=== PATIENT | female | born 1970 | race Two or more races ===

== ENCOUNTER 2022-11-09 08:03 | Day surgery (SDC) | payer BC ==
[~2022-11-09 08:03] MED LIST: Lactated Ringers 1,000 ML IV SCH; Sodium Chloride 0.9% 10 ML Syringe FLUSH PRN; Sodium Chloride 0.9% 2.5 ML Syringe FLUSH PRN; Sodium Chloride 0.9% 20 ML SDV IV PRN
[2022-11-09] MEDS ORDERED: Lidocaine 2% 5 ML SDV ONE (10:34)
[2022-11-09] MEDS ORDERED: Propofol 200 MG/20 ML SDV ONE (10:34)
[2022-11-09] MEDS ORDERED: fentaNYL 100 MCG/2 ML SDV ONE (10:34)
== END 2022-11-09 11:34 | disposition home or self-care (01) ==
LOC: MW.SDS 08:03
PROVIDERS: ATTEND Surgery
DX: Z12.11 Encounter for screening for malignant neoplasm of colon (principal); F41.9 Anxiety disorder, unspecified; F32.A Depression, unspecified; E11.9 Type 2 diabetes mellitus without complications; G47.33 Obstructive sleep apnea (adult) (pediatric); E66.9 Obesity, unspecified; Z88.0 Allergy status to penicillin; Z88.5 Allergy status to narcotic agent; Z79.84 Long term (current) use of oral hypoglycemic drugs; Z79.899 Other long term (current) drug therapy; Z98.890 Other specified postprocedural states; Z68.35 Body mass index [BMI] 35.0-35.9, adult
CPT/HCPCS: 45378; 82947; J2704; J3010; J7120; J3490